=== PATIENT | female | born 1950 ===

== ENCOUNTER → 2017-09-21 | Outpatient (CLI) | payer MEDICARE ==
[2017-09-24 17:07] LABS: CHLAMYDIA BY NAA Negative (Negative); GONOCOCCUS BY NAA Negative (Negative); TRICH VAG BY NAA Negative (Negative)
== END | disposition home or self-care (01) ==
LOC: LAB EV 11:38 → LAB SHORT 11:38
PROVIDERS: Physician Assistant
DX: L29.3 Anogenital pruritus, unspecified (principal)
CPT/HCPCS: 87070; 87077; 87086; 87186; 87205; 87491; 87591; 87661